=== PATIENT | female | born 1970 | race Caucasian/White ===

== ENCOUNTER → 2016-08-05 | Outpatient (CLI) | payer OTHER | LOC: US 08:05 | DX: R10.0 Acute abdomen (principal); K82.8 Other specified diseases of gallbladder | CPT/HCPCS: 76705 ==

== ENCOUNTER 2016-08-07 21:11 | Emergency (ER) | payer OTHER ==
[2016-08-07 22:16] LABS: HEMOGLOBIN 14.9 gm/dl (12.3-15.3); RED BLOOD COUNT 4.66 M/UL (4.00-5.10); WHITE BLOOD COUNT 8.2 K/UL (4.5-11.0)
[2016-08-07 22:37] LABS: BUN/CREATININE RATIO 16 (0-10)
== END 2016-08-08 03:45 | disposition home or self-care (01) ==
LOC: ER1 21:11
PROVIDERS: Student in an Organized Health Care Education/Training Program
DX: R10.811 Right upper quadrant abdominal tenderness (principal); I10 Essential (primary) hypertension; Z88.0 Allergy status to penicillin; Z79.82 Long term (current) use of aspirin; Z79.899 Other long term (current) drug therapy; K76.0 Fatty (change of) liver, not elsewhere classified
CPT/HCPCS: 36415; 71010; 80053; 81001; 82550; 82553; 83690; 83874; 84484; 85025; 87086; 93005; 96374; 96375; 99284; J1885; J2405

== ENCOUNTER → 2016-08-19 | Outpatient (CLI) | payer OTHER | LOC: NM 08:00 | DX: R10.0 Acute abdomen (principal) | CPT/HCPCS: 78227; A9537; J2805 ==

== ENCOUNTER → 2016-09-02 | Outpatient (CLI) | payer SELFPAY | LOC: NM 14:24 | DX: R10.0 Acute abdomen (principal) | CPT/HCPCS: 78226; A9537 ==

== ENCOUNTER 2016-12-22 21:42 | Emergency (ER) | payer OTHER | END 2016-12-23 01:30 | disposition home or self-care (01) | LOC: ER1 21:42 | DX: S90.852A Superficial foreign body, left foot, initial encounter (principal); I10 Essential (primary) hypertension; Z79.82 Long term (current) use of aspirin; Z88.0 Allergy status to penicillin; W45.8XXA Other foreign body or object entering through skin, initial encounter | CPT/HCPCS: 28190; 99283 ==

== ENCOUNTER 2020-04-16 07:24 | Emergency (ER) | payer OTHER ==
[~2020-04-16 07:24] MED LIST: LEVAQUIN750 MG PO
== END 2020-04-16 08:20 | disposition left against medical advice (07) ==
LOC: ER1 07:24
DX: J02.9 Acute pharyngitis, unspecified (principal); R05 Cough; Z53.21 Procedure and treatment not carried out due to patient leaving prior to being seen by health care provider

== ENCOUNTER → 2020-09-21 | Outpatient (CLI) | payer OTHER | LOC: EXRD 09-18 09:45 | DX: R10.84 Generalized abdominal pain (principal) | CPT/HCPCS: 76705 ==